=== PATIENT | female | born 1955 | race Caucasian/White ===

== ENCOUNTER 2021-06-25 15:29 | Observation (INO) | payer MEDICAID ==
[2021-06-25] MEDS ORDERED: ONDANSETRON 4 MG/2 ML VIAL IVP STA (17:03)
[2021-06-25] MEDS ORDERED: SODIUM CHLORIDE 0.9% 1,000 ML IV STA (17:03)
[2021-06-25 17:37] LABS: Anisocytosis Slight; Basophils % (A) 0 %; Eosinophils % (A) 1 %; HGB 10.9 gm/dL (11.4-16.0); Hyperchromasia Slight; Lymphocytes # (A) 0.3 k/uL (1.0-4.8); Lymphocytes % (A) 10 %; MCH 31.5 pg (25.0-35.0); MCHC 35.3 g/dL (31.0-37.0); MCV 89.5 fL (80.0-100.0); Mean Platelet Volume 7.1; Monocytes # (A) 0.2 k/uL (0-1.0); Monocytes % (A) 5 %; Neutrophils # (A) 2.8 k/uL (1.3-7.7); Neutrophils % (A) 82 %; Platelet Count 312 k/uL (150-450); Poikilocytosis Slight; RBC 3.46 m/uL (3.80-5.40); RDW 17.3 % (11.5-15.5); WBC 3.4 k/uL (3.8-10.6)
[2021-06-25 17:46] LABS: Appearance,Urine Clear (Clear); Bilirubin,Urine Negative (Negative); Blood,Urine Negative (Negative); Color,Urine Light Yellow; Glucose,Urine (UA) Negative (Negative); Ketones,Urine Negative (Negative); Leukocyte Esterase,Urine Negative (Negative); Nitrite,Urine Negative (Negative); PH, Urine 6.5 (5.0-8.0); Protein,Urine Negative (Negative); Specific Gravity,Urine 1.012 (1.001-1.035); Urobilinogen,Urine <2.0 mg/dL (<2.0)
[2021-06-25 17:53] LABS: ALT 46 U/L (4-34); AST 40 U/L (14-36); African American GFR (CKD) >90 (>60 ml/min/1.73 sqM); Albumin 3.8 g/dL (3.5-5.0); Alkaline Phosphatase 103 U/L (38-126); Anion Gap 7 mmol/L; Blood Urea Nitrogen 10 mg/dL (7-17); Calcium 9.2 mg/dL (8.4-10.2); Carbon Dioxide 23 mmol/L (22-30); Chloride 105 mmol/L (98-107); Glucose 116 mg/dL (74-99); Lipase 58 U/L (23-300); Magnesium 1.6 mg/dL (1.6-2.3); Non-African American GFR(CKD) >90 (>60 ml/min/1.73 sqM); Potassium 3.7 mmol/L (3.5-5.1); Sodium 135 mmol/L (137-145); Total Bilirubin 0.6 mg/dL (0.2-1.3); Total Protein 6.4 g/dL (6.3-8.2)
[2021-06-25] MEDS ORDERED: MAGNESIUM SULFATE-D5W PMX 1 GM in DEXTROSE/WATER 1 100ML.BAG IVPB ONE (18:59)
[2021-06-25] MEDS ORDERED: MECLIZINE 12.5 MG TAB PO STA (19:11)
[2021-06-25] MEDS ORDERED: diphenhydrAMINE 50 MG/ML 1 ML VIAL IVP STA (19:12)
[2021-06-25] MEDS ORDERED: SODIUM CHLORIDE 0.9% 1,000 ML IV ONE (19:12)
[2021-06-25] MEDS ORDERED: METOCLOPRAMIDE 5 MG/ML 2 ML VIAL IVP STA (19:12)
--- NOTE | 2021-06-25 20:07 | ED ---
Nausea/Vomiting/Diarrhea HPI - General Chief complaint: Nausea/Vomiting/Diarrhea Stated complaint: Dehydration Source: patient, family Mode of arrival: wheelchair Limitations: no limitations - History of Present Illness Initial comments: 66-year-old female with past medical history of breast cancer on chemotherapy presents emergency Department with reported nausea, vomiting and diarrhea. Patient states that she has had chronic diarrhea for nausea and vomiting is new for her. She just received her 2nd round of 12 planned chemo infusions on . States that she felt well up until noon today when she had sudden onset of nausea and vomiting. She called Ashli Sorto who recommended that she come into the emergency department for fluids. Patient admits to mild left lower quadrant abdominal pain. No headaches, fevers, weakness, chest pain or shortness of breath. No other alleviating, precipitating or modifying factors - Related Data Home Medications Medication Instructions Recorded Confirmed Cholecalciferol [Vitamin D3 (25 25 mcg PO DAILY 06/25/21 06/25/21 Mcg = 1000 Iu)] Cholestyramine (with Sugar) 4 gm PO DAILY PRN 06/25/21 06/25/21 [Cholestyramine Packet] Dexamethasone [Decadron] See Taper PO DIRECTED PRN 06/25/21 06/25/21 Dicyclomine [Bentyl] 10 mg PO TID PRN 06/25/21 06/25/21 Folic Acid 1 mg PO DAILY 06/25/21 06/25/21 Lidocaine-Prilocaine Cream [Emla 1 applic TOPICAL DIRECTED PRN 06/25/21 06/25/21 Cream 2.5%/2.5%] Loratadine [Claritin] 10 mg PO DAILY PRN 06/25/21 06/25/21 OLANZapine [ZyPREXA] 5 mg PO DAILY PRN 06/25/21 06/25/21 Omeprazole 40 mg PO DAILY 06/25/21 06/25/21 ondansetron HCL [Zofran] 8 mg PO QID PRN 06/25/21 06/25/21 Allergies Allergy/AdvReac Type Severity Reaction Status Date / Time aspirin Allergy Dyspnea Verified 06/25/21 20:29 Review of Systems ROS Statement: Those systems with pertinent positive or pertinent negative responses have been documented in the HPI. ROS Other: All systems not noted in ROS Statement are negative. Past Medical History Additional Past Medical History / Comment(s): Breast CA History of Any Multi-Drug Resistant Organisms: None Reported Past Surgical History: Cholecystectomy, Joint Replacement, Orthopedic Surgery, Tonsillectomy Past Psychological History: No Psychological Hx Reported Smoking Status: Never smoker Past Alcohol Use History: None Reported Past Drug Use History: None Reported General Exam Limitations: no limitations Course Vital Signs 06/25/21 16:51 Temperature 97.7 F Pulse Rate 94 Respiratory 20 Rate Blood Pressure 144/98 O2 Sat by Pulse 96 Oximetry - Reevaluation(s) Reevaluation #1: Patient reevaluated. Nausea is improved however patient has now developed tobias dden onset of vertiginous symptoms. Meclizine, Reglan and Benadryl ordered 06/25/21 1700 Reevaluation #2: Patient reevaluated. Still having significant vertigo. 5 mg of Valium was ordered. Did speak with the patient to has been in contact with Ashli Sorto. She is requesting CT the patient's abdomen because of her persistent diarrhea. Patient will go over for a CT of her brain as well as her abdomen at this time. 06/25/21 20:49 Medical Decision Making - Medical Decision Making Upon arrival the patient is placed in room 26. There was significant physical exam is performed. IV is established the patient is given 4 mg of Zofran and 1 L of normal saline. Laboratory studies are conducted and reviewed. Patient is a white blood cell count 3.4. AST and ALTs mildly elevated. The patient was reevaluated and has developed sudden onset of vertiginous symptoms. She has any improvement in her nausea. She is given Reglan, Benadryl and a dose of meclizine. Patient is reevaluated and continues to have significant vertigo. At this point he did recommend a CT of the patient's brain. has been speaking with she appears in who is requesting CT of the abdomen and pelvis due to elevated liver enzymes and vomiting. Patient's requesting the CT be done without contrast. CT is performed which demonstrates no acute intracranial process. CT of the abdomen demonstrates no acute intra-abdominal process. Patient is reevaluated and continues to report to vertiginous symptoms and therefore is given 5 mg of Valium. I commended admission for persistent symptoms which he did agree to. Spoke with Dr. Garcia who agreed to admit the patient. Dr. Martines placed on consult. - Lab Data Result diagrams: 06/25/21 17:32 06/25/21 17:32 Lab Results 06/25/21 06/25/21 06/25/21 Range/Units 17:32 17:32 17:32 WBC 3.4 L (3.8-10.6) k/uL RBC 3.46 L (3.80-5.40) m/uL Hgb 10.9 L (11.4-16.0) gm/dL Hct 31.0 L (34.0-46.0) % MCV 89.5 (80.0-100.0) fL MCH 31.5 (25.0-35.0) pg MCHC 35.3 (31.0-37.0) g/dL RDW 17.3 H (11.5-15.5) % Plt Count 312 (150-450) k/uL MPV 7.1 Neutrophils % 82 % Lymphocytes % 10 % Monocytes % 5 % Eosinophils % 1 % Basophils % 0 % Neutrophils # 2.8 (1.3-7.7) k/uL Lymphocytes # 0.3 L (1.0-4.8) k/uL Monocytes # 0.2 (0-1.0) k/uL Eosinophils # 0.0 (0-0.7) k/uL Basophils # 0.0 (0-0.2) k/uL Hyperchromasia Slight Poikilocytosis Slight Anisocytosis Slight Sodium 135 L (137-145) mmol/L Potassium 3.7 (3.5-5.1) mmol/L Chloride 105 (98-107) mmol/L Carbon Dioxide 23 (22-30) mmol/L Anion Gap 7 mmol/L BUN 10 (7-17) mg/dL Creatinine 0.49 L (0.52-1.04) mg/dL Est GFR (CKD-EPI)AfAm >90 (>60 ml/min/1.73 sqM) Est GFR (CKD-EPI)NonAf >90 (>60 ml/min/1.73 sqM) Glucose 116 H (74-99) mg/dL Calcium 9.2 (8.4-10.2) mg/dL Magnesium 1.6 (1.6-2.3) mg/dL Total Bilirubin 0.6 (0.2-1.3) mg/dL AST 40 H (14-36) U/L ALT 46 H (4-34) U/L Alkaline Phosphatase 103 (38-126) U/L Total Protein 6.4 (6.3-8.2) g/dL Albumin 3.8 (3.5-5.0) g/dL Lipase 58 (23-300) U/L Urine Color Light Yellow Urine Appearance Clear (Clear) Urine pH 6.5 (5.0-8.0) Ur Specific [place] 1.012 (1.001-1.035) Urine Protein Negative (Negative) Urine Glucose (UA) Negative (Negative) Urine Ketones Negative (Negative) Urine Blood Negative (Negative) Urine Nitrite Negative (Negative) Urine Bilirubin Negative (Negative) Urine Urobilinogen <2.0 (<2.0) mg/dL Ur Leukocyte Esterase Negative (Negative) - EKG Data EKG Comments: EKG demonstrates sinus rhythm with ventricular rate of 86. NV Interval 194. QRS 88. QTC 464. No acute ST segment elevations or depressions concerning for ischemic changes Disposition Clinical Impression: Weakness, Chemotherapy induced nausea and vomiting, Neutropenia Disposition: [facility] Condition: Stable Is patient prescribed a controlled substance at d/c from ED?: No Decision to Admit Reason: Admit from EC Decision Date: 06/25/21 Decision Time: 20:08
[2021-06-25] MEDS ORDERED: ACETAMINOPHEN TAB 325 MG TAB PO PRN (20:20)
[2021-06-25] MEDS ORDERED: ONDANSETRON 4 MG/2 ML VIAL IVP PRN (20:20)
[2021-06-25] MEDS ORDERED: NALOXONE 0.4 MG/ML 1 ML VIAL IV PRN (20:20)
[2021-06-25] MEDS ORDERED: DIAZEPAM 5 MG/ML 2 ML INJ IVP STA (20:46)
--- NOTE | 2021-06-25 21:26 | CT ---
EXAMINATION TYPE: CT brain wo con DATE OF EXAM: 06/25/2021 COMPARISON: None available HISTORY: Vertigo, breast cancer history. CT DLP: 1086.4 mGycm. Automated Exposure Control for Dose Reduction was Utilized. TECHNIQUE: Multiple contiguous axial CT images of the head were performed from the skull base through the vertex without the administration of intravenous contrast. 2-D sagittal and coronal reformats we re obtained. FINDINGS: No acute intracranial hemorrhage, mass effect, or midline shift. The ventricles and sulci are within normal limits in size. Hernández-white differentiation is preserved. No CT evidence of acute l arge vessel territorial ischemia. Calvarium appears intact. The globes are intact and the visualized sinuses are clear. IMPRESSION: No acute intracranial process.
--- NOTE | 2021-06-25 21:32 | CT ---
EXAMINATION TYPE: CT abdomen pelvis wo con DATE OF EXAM: 06/25/2021 COMPARISON: None available HISTORY: Diarrhea, elevated liver enzymes. CT DLP: 827.9 mGycm. Automated Exposure Control for Dose Reduction was Utilized. TECHNIQUE: Multiple contiguous axial CT images of the performed from the lung bases through the pubic symphysis without the administration of intravenous contrast. 2-D sagittal and coronal reformatted i mages were obtained. FINDINGS: Lung bases are clear. Liver, spleen, pancreas, and bilateral adrenal glands have an unremarkable unenhanced appearance. Gallbladder is absent. No definite intrahepatic or extrahepatic biliary ductal dilatation. Kidneys are symmetric in size without hydronephrosis. No renal or ureteral calculi. Urinary bladder a ppears unremarkable. Uterus is present. No adnexal masses. No free fluid. Small hiatal hernia. Visualized bowel is of normal caliber without evidence of obstruction. No signif icant mesenteric inflammation. Moderate distal colonic diverticulosis without adjacent inflammatory c hanges. Appendix appears unremarkable. No free air. Mild atherosclerotic calcifications of the abdominal aorta without aneurysm. No intra-abdominal or re troperitoneal lymphadenopathy. Subcutaneous soft tissues appear unremarkable. Moderate multilevel degenerative changes of the visualized thoracolumbar spine with grade 1 anterolis thesis of L4 on L5 secondary to facet arthropathy. IMPRESSION: 1. No definite acute intra-abdominal process. 2. Distal colonic diverticulosis without definite diverticulitis.
[2021-06-25] MEDS: SODIUM CHLORIDE 0.9% 1,000 ML IV SCH (22:20)
[2021-06-26] MEDS ORDERED: LORATADINE 10 MG TAB PO PRN (00:27)
[2021-06-26] MEDS ORDERED: OLANZapine 5 MG TAB PO PRN (00:27)
[2021-06-26] MEDS ORDERED: CHOLESTYRAMINE (WITH SUGAR) 4 GM PACKET PO PRN (00:27)
[2021-06-26] MEDS ORDERED: DICYCLOMINE 10 MG CAP PO PRN (00:27)
[2021-06-26] MEDS: MECLIZINE 25 MG TAB PO PRN ×2 (06:19→15:54)
[2021-06-26] MEDS: FOLIC ACID 1 MG TAB PO SCH (08:31)
[2021-06-26] MEDS: PANTOPRAZOLE 40 MG TABLET PO SCH (08:31)
[2021-06-26] MEDS: CHOLECALCIFEROL 25 MCG (1000 IU) TABLET PO SCH (08:31)
[2021-06-26 09:43] LABS: Basophils # (A) 0.02 X 10*3/uL (0.00-0.10); Basophils % (A) 0.8 %; Eosinophils # (A) 0.01 X 10*3/uL (0.04-0.35); Eosinophils % (A) 0.4 %; HCT 28.9 % (37.2-46.3); HGB 9.6 g/dL (12.0-15.0); Lymphocytes # (A) 0.51 X 10*3/uL (0.90-5.00); Lymphocytes % (A) 21.3 %; MCH 30.8 pg (27.0-32.0); MCHC 33.2 g/dL (32.0-37.0); MCV 92.6 fL (80.0-97.0); Mean Platelet Volume 10.2 fL (9.5-12.2); Monocytes # (A) 0.25 X 10*3/uL (0.20-1.00); Monocytes % (A) 10.4 %; Neutrophils % (A) 66.7 %; Platelet Count 304 X 10*3/uL (140-440); RBC 3.12 X 10*6/uL (4.10-5.20)
[2021-06-26 12:45] LABS: African American GFR (CKD) 109.7 (60.0-200.0); Anion Gap 12.4 mmol/L (4.00-12.00); BUN/Creat Ratio 14.92 Ratio (12.00-20.00); Blood Urea Nitrogen 8.9 mg/dL (9.0-27.0); Calcium 8.6 mg/dL (8.7-10.3); Carbon Dioxide 21.3 mmol/L (21.6-31.8); Non-African American GFR(CKD) 94.7 (60.0-200.0); Potassium 3.8 mmol/L (3.5-5.5)
--- NOTE | 2021-06-26 13:21 | P.HPIM ---
History of Present Illness This is a pleasant 66 years old female with past medical history of breast cancer status post bilateral mastectomy and currently she is undergoing chemotherapy. She presents because of nausea vomiting. However patient states her main complaints she came to the hospital with was dizziness. She describes dizziness as the room is spinning especially when she lies down. She's been getting chemotherapy for the last 10 weeks, however over the last 2 weeks she started to continue chemotherapy, and the second dose was on , on the same day she started having vomiting and dizziness, sometimes waking her up from the middle of the night. Yesterday she vomited 3 times, she has also diarrhea one hour after each time she eats for the last 2 days. Her oncologist is Dr. Ortiz and she has also neurologist She denies smoking, alcohol or illicit drugs Hemodynamically she is stable and vitals are stable. Mild Bicytopenia with WBC of 3.4 and Hemoglobin 10.9 While Platelets Are Normal at 312. BMP Is Unremarkable, Liver Enzymes Slightly Elevated with AST 48 ALT 46. Lipase Normal and Urine Analysis Is Negative. Coronavirus Is Not Detected CT of the brain: No acute process: CT of the abdomen and pelvis without contrast showing no definite acute intra- abdominal process. Distal colonic diverticulosis without diverticulitis. EKG showing normal sinus rhythm at [address]-T changes. Emergency room patient received several medication to control her vomiting including volume, Benadryl, magnesium sulfate, meclizine, Zofran and she was started on normal saline Review of Systems CONSTITUTIONAL: No fever, no malaise, no fatigue. HEENT: No recent visual problems or hearing problems. Denied any sore throat. CARDIOVASCULAR: No orthopnea, PND, no palpitations, no syncope. PULMONARY: No shortness of breath, no cough, no hemoptysis. GASTROINTESTINAL: No diarrhea, no nausea, no vomiting, no abdominal pain. Normoactive bowel sounds. NEUROLOGICAL: No headaches, no weakness, no numbness. HEMATOLOGICAL: Denies any bleeding or petechiae. GENITOURINARY: Denies any burning micturition, frequency, or urgency. MUSCULOSKELETAL/RHEUMATOLOGICAL: Denies any joint pain, swelling, or any muscle pain. ENDOCRINE: Denies any polyuria or polydipsia. Past Medical History Past Medical History: Cancer Additional Past Medical History / Comment(s): Breast CA History of Any Multi-Drug Resistant Organisms: None Reported Past Surgical History: Cholecystectomy, Joint Replacement, Orthopedic Surgery, Tonsillectomy Additional Past Surgical History / Comment(s): Bilateral knee replacements, left shoulder replacement. Bilateral mastectomy. Spurs removed from right foot. Past Anesthesia/Blood Transfusion Reactions: No Reported Reaction Past Psychological History: No Psychological Hx Reported Smoking Status: Never smoker Past Alcohol Use History: None Reported Past Drug Use History: None Reported Medications and Allergies Home Medications Medication Instructions Recorded Confirmed Type Cholecalciferol [Vitamin D3 (25 25 mcg PO DAILY 06/25/21 06/25/21 History Mcg = 1000 Iu)] Cholestyramine (with Sugar) 4 gm PO DAILY PRN 06/25/21 06/25/21 History [Cholestyramine Packet] Dexamethasone [Decadron] See Taper PO DIRECTED PRN 06/25/21 06/25/21 History Dicyclomine [Bentyl] 10 mg PO TID PRN 06/25/21 06/25/21 History Folic Acid 1 mg PO DAILY 06/25/21 06/25/21 History Lidocaine-Prilocaine Cream [Emla 1 applic TOPICAL DIRECTED PRN 06/25/21 History Cream 2.5%/2.5%] Loratadine [Claritin] 10 mg PO DAILY PRN 06/25/21 06/25/21 History OLANZapine [ZyPREXA] 5 mg PO DAILY PRN 06/25/21 06/25/21 History Omeprazole 40 mg PO DAILY 06/25/21 06/25/21 History ondansetron HCL [Zofran] 8 mg PO QID PRN 06/25/21 06/25/21 History Allergies Allergy/AdvReac Type Severity Reaction Status Date / Time aspirin Allergy Dyspnea Verified 06/25/21 20:29 Physical Exam Vitals: Vital Signs Temp Pulse Pulse Resp BP BP Pulse Ox 06/25/21 21:56 89 16 06/25/21 21:42 97.6 F 89 16 136/86 98 06/25/21 16:51 97.7 F 94 20 144/98 96 Intake and Output 06/25/21 06/25/21 06/26/21 14:59 22:59 06:59 Other: Voiding Method Toilet # Voids 1 Weight 88.451 kg -GENERAL: The patient is alert and oriented x3, not in any acute distress. Well developed, well nourished. Pale -HEENT: Pupils are round and equally reacting to light. EOMI. No scleral icterus. No conjunctival pallor. Normocephalic, atraumatic. No pharyngeal erythema. No thyromegaly. alopecia CARDIOVASCULAR: S1 and S2 present. No murmurs, rubs, or gallops. PULMONARY: Chest is clear to auscultation, no wheezing or crackles. ABDOMEN: Soft, nontender, nondistended, normoactive bowel sounds. No palpable organomegaly. MUSCULOSKELETAL: No joint swelling or deformity. EXTREMITIES: No cyanosis, clubbing, or pedal edema. NEUROLOGICAL: Gross neurological examination did not reveal any focal deficits. SKIN: No rashes. No petechiae Results CBC & Chem 7: 06/26/21 06:54 06/26/21 06:54 Labs: Abnormal Lab Results - Last 24 Hours (Table) 06/25/21 06/25/21 Range/Units 17:32 17:32 WBC 3.4 L (3.8-10.6) k/uL RBC 3.46 L (3.80-5.40) m/uL Hgb 10.9 L (11.4-16.0) gm/dL Hct 31.0 L (34.0-46.0) % RDW 17.3 H (11.5-15.5) % Lymphocytes # 0.3 L (1.0-4.8) k/uL Sodium 135 L (137-145) mmol/L Creatinine 0.49 L (0.52-1.04) mg/dL Glucose 116 H (74-99) mg/dL AST 40 H (14-36) U/L ALT 46 H (4-34) U/L Thrombosis Risk Factor Assmnt - Choose All That Apply Each Factor Represents 1 point: Obesity (BMI >25) Each Risk Factor Represents 2 Points: Age 61-74 years Thrombosis Risk Factor Assessment Total Risk Factor Score: 3 Thrombosis Risk Factor Assessment Level: Moderate Risk Assessment and Plan Assessment: Dizziness, suspicious for acute vertigo Intractable nausea vomiting, with chemotherapy Diarrhea after eating. Rule out C. difficile Breast cancer undergoing chemotherapy. Dehydration secondary to above status post bilateral mastectomy Alopecia, chemotherapy-induced Plan: This is a pleasant 66 years old female who presents with intractable nausea vomiting secondary to undergoing chemotherapy for breast cancer. Continue with normal saline anti emetics: Zofran, may consider Reglan, Phenergan and Tigan. Check orthostatic vitals Check C. diff Neurology consult There is no chest x-ray in the system so we will order one Labs and medication were reviewed.. Continue same treatment. Continue with symptomatic treatment. Resume home medication. Monitor lytes and vitals. DVT and GI prophylaxis. Further recommendations depends on the clinical course of the patient DVT prophylaxis: Subcutaneous heparin GI Prophylaxis: pi Prognosis is guarded
--- NOTE | 2021-06-26 15:21 | XR ---
EXAMINATION TYPE: XR chest 2V DATE OF EXAM: 06/26/2021 COMPARISON: NONE HISTORY: Breast cancer. TECHNIQUE: 2 view FINDINGS: Heart is normal. Lungs are clear of infiltrate. There is left shoulder prosthesis. There is right central venous catheter with tip in the superior vena cava. There is no pleural effusion. Bony thorax appears intact. IMPRESSION: No active cardiopulmonary disease. Normal heart.
[2021-06-26] MEDS: SODIUM CHLORIDE 0.9% 1,000 ML IV SCH (19:01)
--- NOTE | 2021-06-26 19:42 | US ---
EXAMINATION TYPE: US carotid duplex BILAT DATE OF EXAM: 06/26/2021 COMPARISON: NONE CLINICAL HISTORY: vertigo. Exam done portable EXAM MEASUREMENTS: RIGHT: Peak Systolic Velocity (PSV) cm/sec ----- Right CCA: 95.5 ----- Right ICA: 80.3 ----- Right ECA: 82.4 ICA/CCA ratio: 0.8 RIGHT: End Diastole cm/sec ----- Right CCA: 27.3 ----- Right ICA: 26.3 ----- Right ECA: 8.6 LEFT: Peak Systolic Velocity (PSV) cm/sec ----- Left CCA: 72.7 ----- Left ICA: 87.4 ----- Left ECA: 69.2 ICA/CCA ratio: 1.2 LEFT: End Diastole cm/sec ----- Left CCA: 18.5 ----- Left ICA: 33.2 ----- Left ECA: 11.2 VERTEBRALS (direction of flow): Right Vertebral: Antegrade Left Vertebral: Antegrade Rhythm: Normal No significant stenosis IMPRESSION: The images and measurements suggest less than 10% stenosis in both internal carotid arteries. There i s antegrade flow in the vertebral arteries. Criteria for Assigning % of Stenosis / Diameter reduction (Estimation based on the indirect measurements of the internal carotid artery velocities (ICA PSV). 1. Normal (no stenosis)=ICA PSV < 125 cm/s: ratio < 2.0: ICA EDV<40 cm/s. 2. Less than 50% stenosis=ICA PSV < 125 cm/s: ratio < 2.0: ICA EDV<40 cm/s. 3. 50 to 69% stenosis=ICA PSV of 125 to 230 cm/s: ration 2.0 ? 4.0: ICA EDV 40-100 cm/s. 4. Greater than 70% stenosis to near occlusion= ICA PSV > 230 cm/s: ratio > 4.0: ICA EDV > 100 cm/s. 5. Near occlusion= ICA PSV velocities may be low or undetectable: variable ratio and ICA EDV. 6. Total occlusion=unable to detect flow.
--- NOTE | 2021-06-26 21:46 | P.CONS ---
History of Present Illness - Reason for Consult Consult date: 06/26/21 Diarrhea,dehydration, N/v, chemo for breast ca - History of Present Illness Ms Quach is a pleasant white female with overall well-controlled medical problems. The patient had noticed a hard mass in the inner upper quadrant of the left breast initially in 01/21. She brought this to the attention of her PCP, and had mammogram on 01/27/21. This showed a masslike density measuring 1.4 x 1.3 cm located about 10 cm from the nipple. Ultrasound on the same day confirmed a 1.7 x 1.1 x 1.5 cm lesion at the 9 o'clock position. The patient underwent an ultrasound-guided core biopsy on 02/03/21. This showed invasive ductal carcinoma, grade 3, ER weakly positive at 35%, AK negative, and HER-2/prince 2+. Apparently FISH testing was negative. The patient elected to have surgery at the [facility]. Imaging at the [facility] showed the breast mass measuring 2.7 cm with addition suspicious tissue spanning 5.1 cm. The patient elected bilateral mastectomies and had those performed on 03/09/21. Final pathology showed a 3.2 cm, grade 3, invasive ductal carcinoma on the left ER 35%, AK negative, and a minor subclone HER 2 positive with 3+ IHC. Patient had sentinel node biopsy on the left revealing 1/3 nodes involved with micrometastatic disease 0.19 cm. The right breast was benign. The patient tolerated surgery well. She was seen by oncology at the [facility], Dr. Snow, and was felt to be appropriate candidate for adjuvant systemic therapy. As the HER-2 positive clone was minor, she was recommended to have dose dense Adriamycin and Cytoxan followed by weekly Taxol with Herceptin and Perjeta, with the immunotherapy to continue every 3 weeks after completion of chemotherapy to complete one full year of treatment. The patient wanted to have her treatment closer to home due to which she was referred here. She denied any prior history of malignancy. Her mammogram before this one was in 2019. In 2016 she had had a benign biopsy on the right breast. There is no family history of breast or ovarian cancer. She tolerated surgery well without any significant postoperative issues. She has decided against any reconstruction. The patient has a history of hypertension and only which are fairly minor. She does have a history of allergies to multiple substances. She states that s he has several symptoms that are apparently suspicious for autoimmune disease such as SLE, including skin rashes, or in onwards, photosensitivity, myalgias and fatigue. She did have a rheumatology workup which was however negative for any serological markers. The patient therefore has not had any specific treatment and no rheumatology follow-up since at least 2014. the patient's PET scan showed uptake in a 0.6 cm internal mammary node. However given the location this was not felt to change treatment or intent of treatment. the patient started dose dense before meals on 04/22/21, and completed that on 06/03/21. She then started weekly Taxol with herceptin/Perjeta on 06/16/21 The patient is status post 2/12 weekly cycles, with the most recent one given on 06/23/21. The patient has had some upper abdominal discomfort described as burning, as well as some nausea off and on. Nausea has been responsive to antibiotics. However after her last chemotherapy the patient states that she had having multiple episodes of loose bowel movements. Over the last 2 or 3 days she has been quite dizzy. She states that she developed overt vomiting when she was trying to rehydrate herself. This caused progression of weakness, causing her to come to the ER. The chest x-ray, CT brain and CT of the abdomen and pelvis did not show any specific pathology. CT scans were done without contrast. On questioning the patient definitely feels that her main problem has been diarrhea rather than nausea and vomiting. She is also complaining of some abdominal tenderness which appears to be localized to the left lower quadrant. This has been continuing in the hospital. Consult was placed for further evaluation and recommendation Review of Systems Constitutional: Reports fatigue, Reports poor appetite, Reports weakness, Reports weight loss Eyes: denies blurred vision, denies pain Ears: deny: decreased hearing, ear discharge, earache, tinnitus Ears, nose, mouth and throat: Denies headache, Denies sore throat Cardiovascular: Reports decreased exercise tolerance Respiratory: Denies cough Gastrointestinal: Reports abdominal pain, Reports diarrhea, Reports nausea, Reports vomiting Genitourinary: Denies dysuria, Denies hematuria Menstruation: Reports postmenopausal Musculoskeletal: Reports muscle weakness Integumentary: Denies pruritus, Denies rash Neurological: Reports weakness Psychiatric: Denies anxiety, Denies depression Endocrine: Reports fatigue Hematologic/Lymphatic: Reports as per HPI Past Medical History Past Medical History: Cancer Additional Past Medical History / Comment(s): Breast CA History of Any Multi-Drug Resistant Organisms: None Reported Past Surgical History: Cholecystectomy, Joint Replacement, Orthopedic Surgery, Tonsillectomy Additional Past Surgical History / Comment(s): Bilateral knee replacements, left shoulder replacement. Bilateral mastectomy. Spurs removed from right foot. Past Anesthesia/Blood Transfusion Reactions: No Reported Reaction Past Psychological History: No Psychological Hx Reported Smoking Status: Never smoker Past Alcohol Use History: None Reported Past Drug Use History: None Reported Medications and Allergies Home Medications Medication Instructions Recorded Confirmed Type Cholecalciferol [Vitamin D3 (25 25 mcg PO DAILY 06/25/21 06/25/21 History Mcg = 1000 Iu)] Cholestyramine (with Sugar) 4 gm PO DAILY PRN 06/25/21 06/25/21 History [Cholestyramine Packet] Dexamethasone [Decadron] See Taper PO DIRECTED PRN 06/25/21 06/25/21 History Dicyclomine [Bentyl] 10 mg PO TID PRN 06/25/21 06/25/21 History Folic Acid 1 mg PO DAILY 06/25/21 06/25/21 History Lidocaine-Prilocaine Cream [Emla 1 applic TOPICAL DIRECTED PRN 06/25/21 06/25/21 History Cream 2.5%/2.5%] Loratadine [Claritin] 10 mg PO DAILY PRN 06/25/21 06/25/21 History OLANZapine [ZyPREXA] 5 mg PO DAILY PRN 06/25/21 06/25/21 History Omeprazole 40 mg PO DAILY 06/25/21 06/25/21 History ondansetron HCL [Zofran] 8 mg PO QID PRN 06/25/21 06/25/21 History Allergies Allergy/AdvReac Type Severity Reaction Status Date / Time aspirin Allergy Dyspnea Verified 06/25/21 20:29 Physical Exam Vitals: Vital Signs Temp Pulse Pulse Resp BP BP Pulse Ox 06/26/21 07:00 98.4 F 94 17 143/84 98 06/26/21 02:14 98.0 F 80 18 115/75 97 06/25/21 21:56 89 16 06/25/21 21:42 97.6 F 89 16 136/86 98 06/25/21 16:51 97.7 F 94 20 144/98 96 Intake and Output 06/25/21 06/26/21 06/26/21 22:59 06:59 14:59 Output Total 1 Balance -1 Output: Urine/Stool Mix 1 Other: Voiding Method Toilet # Voids 1 Weight 88.451 kg - Constitutional General appearance: no acute distress - EENT Eyes: EOMI, PERRLA ENT: hearing grossly normal, normal oropharynx - Neck Neck: no lymphadenopathy Thyroid: bilateral: normal size - Respiratory Respiratory: bilateral: CTA - Cardiovascular Rhythm: regular Heart sounds: normal: S1, S2 - Gastrointestinal General gastrointestinal: hyperactive bowel sounds, soft Localized gastrointestinal: tender: LLQ - Integumentary Integumentary: normal - Neurologic Neurologic: CNII-XII intact - Musculoskeletal Musculoskeletal: generalized weakness, strength equal bilaterally - Psychiatric Psychiatric: A&O x's 3, appropriate affect Results CBC & Chem 7: 06/26/21 06:54 06/26/21 06:54 Labs: Abnormal Lab Results - Last 24 Hours (Table) 06/25/21 06/25/21 06/26/21 Range/Units 17:32 17:32 06:54 WBC 3.4 L 2.40 L (3.8-10.6) k/uL RBC 3.46 L 3.12 L (3.80-5.40) m/uL Hgb 10.9 L 9.6 L (11.4-16.0) gm/dL Hct 31.0 L 28.9 L (34.0-46.0) % RDW 17.3 H 17.0 H (11.5-15.5) % Neutrophils # 1.60 L (1.80-7.70) X 10*3/uL Lymphocytes # 0.3 L 0.51 L (1.0-4.8) k/uL Eosinophils # 0.01 L (0.04-0.35) X 10*3/uL Sodium 135 L (137-145) mmol/L Creatinine 0.49 L (0.52-1.04) mg/dL Glucose 116 H (74-99) mg/dL AST 40 H (14-36) U/L ALT 46 H (4-34) U/L Chest x-ray: report reviewed CT scan - abdomen: report reviewed CT Scan - head: report reviewed CT scan - pelvis: report reviewed Assessment and Plan (1) Diarrhea with dehydration Narrative/Plan: While nausea and vomiting was the precipitating event bring the patient to the ER, her problem actually appears to be mostly diarrhea that started after her last chemotherapy and has been persistent, with multiple bowel movements which have been mostly watery throughout the day. Diarrhea appears to be brought on by eating, due to which oral intake has been reduced. The patient has therefore been getting weaker and dizzy, most likely due to dehydration. While she has had some nausea at baseline with chemotherapy, that has been well controlled with anti emetics previously. She believes that she started throwing up after trying to hydrate herself with electrolyte solutions more aggressively over the last 1-2 days. - The differential diagnosis includes chemotherapy related enterocolitis, versus infection versus diverticulitis (given the left lower quadrant location). Patient's CT of the abdomen and pelvis was unrevealing, but this was done without contrast. - Clear liquid diet - Stool studies for C. difficile stool culture. If negative she can be started on antidiarrheals - IV hydration. Once the patient's hydration status is better, and nausea is controlled, the plan would be to repeat a CT scan with contrast. If infection workup is negative, and CT scan show generalized enterocolitis, which would be highly suggestive of chemotherapy related adverse event, then she will need dose modification with treatment going forward. Current Visit: Yes Status: Acute Code(s): R19.7 - DIARRHEA, UNSPECIFIED SNOMED Code(s): 04015624 (2) Chemotherapy induced nausea and vomiting Narrative/Plan: The patient has had some nausea, and upper abdominal discomfort on and off since starting chemotherapy, which appears to be mostly chemotherapy related gastritis. More severe nausea and vomiting occurred over the last 1-2 days, w hen she was trying to aggressively hydrate herself with oral electrolytes while also been quite dizzy from dehydration. CT of the brain did not show any acute issues. - IV antiemetics - IV hydration Current Visit: Yes Status: Acute Code(s): R11.2 - NAUSEA WITH VOMITING, UNSPECIFIED; T45.1X5A - ADVERSE EFFECT OF ANTINEOPLASTIC AND IMMUNOSUP DRUGS, INIT SNOMED Code(s): 72711209 (3) Bicytopenia Narrative/Plan: Due to chemotherapy. Monitor counts. Consider G-CSF if ANC drops below 1000 especially if the patient develops any fever. Transfuse to keep hemoglobin greater than 10. Current Visit: Yes Status: Acute Code(s): D75.89 - OTHER SPECIFIED DISEASES OF BLOOD AND BLOOD-FORMING ORGANS SNOMED Code(s): 29043143
[2021-06-26] MEDS ORDERED: ONDANSETRON 4 MG/2 ML VIAL IVP PRN (21:48)
[2021-06-26 23:19] LABS: Folate, Serum 14.6 ng/mL (4.40-31.00)
[2021-06-27] MEDS: MECLIZINE 25 MG TAB PO PRN ×2 (00:04→08:49)
[2021-06-27] MEDS: CHOLESTYRAMINE (WITH SUGAR) 4 GM PACKET PO SCH ×4 (00:05→20:37)
[2021-06-27] MEDS: SODIUM CHLORIDE 0.9% 1,000 ML IV SCH ×2 (00:06→08:50)
--- NOTE | 2021-06-27 01:51 | P.CNNES ---
History of Present Illness Consult date: 06/26/21 Requesting physician: Tyler Garcia Reason for Consult: Vertigo History of Present Illness: This is a Tele-neurology consultation performed today on 06/26/2021. Patient is a 66-year-old female with history of stage II breast cancer diagnosed in February 2021, who underwent a double mastectomy in March and started with chem otherapy in early March 2021. The chemotherapy started as every other week which she received for first 8 weeks. After that, in the last 2 weeks she has been receiving a different type of chemotherapy which is immunotherapy, and she has received 1 dose of immunotherapy so far. Patient states that yesterday at 11 AM she was getting up and around making bed when she started noticing spinning sens ation like vertigo. It really head fast and then she started throwing up. She felt that she was dehydrated, took Gatorade, but then she threw it up. She came to the hospital yesterday at 3:29 PM. Her symptoms of vertigo has persisted. She is noticing some mild headache today above the right eye which radiates 2/10. Denies any recent or remote history of head or neck injury. She denies any pressure in the ear, ringing in the years, or pressure. If she moves head fast, she feels double vision [id number]. Denies any numbness or tingling. No slurred speech or facial droop. No paralysis. When she lays down, she feels her "bed is spinning. Denies any vision loss or blurred vision. She denies any history of vertigo ever in the past. Patient's vital signs on arrival blood pressure 144/98, pulse of 94, temperature 97.7. Patient's blood test shows WBC 3.4 hemoglobin 10.9, platelet 312. Sodium 135 potassium 3.7, normal renal function. AST is mildly elevated 40, ALT 46. UA negative. Negron virus PCR negative. CT head showed no acute process. EKG with normal sinus rhythm. CT of abdomen and pelvis revealed no definite acute intra-abdominal process. Distal colonic diverticulosis without definite diverticulitis. Chest x-ray shows no acute cardiopulmonary disease. Patient's home medications include vitamin D, Zofran, omeprazole, folic acid dexamethasone 4 mg. Patient was given Zyprexa 5 mg daily when necessary for nausea but she has not taken it for last 7 days. Patient denies diabetes or hypertension, never smoked. Review of Systems As mentioned above in HPI. All other review of systems reviewed and noncontributory. All 14 point of review systems are reviewed. Patient even at this time feels spinning sensation. Past Medical History Past Medical History: Cancer Additional Past Medical History / Comment(s): Breast CA History of Any Multi-Drug Resistant Organisms: None Reported Past Surgical History: Cholecystectomy, Joint Replacement, Orthopedic Surgery, Tonsillectomy Additional Past Surgical History / Comment(s): Bilateral knee replacements, left shoulder replacement. Bilateral mastectomy. Spurs removed from right foot. Past Anesthesia/Blood Transfusion Reactions: No Reported Reaction Past Psychological History: No Psychological Hx Reported Smoking Status: Never smoker Past Alcohol Use History: None Reported Past Drug Use History: None Reported Medications and Allergies Home Medications Medication Instructions Recorded Confirmed Type Cholecalciferol [Vitamin D3 (25 25 mcg PO DAILY 06/25/21 06/25/21 History Mcg = 1000 Iu)] Cholestyramine (with Sugar) 4 gm PO DAILY PRN 06/25/21 06/25/21 History [Cholestyramine Packet] Dexamethasone [Decadron] See Taper PO DIRECTED PRN 06/25/21 06/25/21 History Dicyclomine [Bentyl] 10 mg PO TID PRN 06/25/21 06/25/21 History Folic Acid 1 mg PO DAILY 06/25/21 06/25/21 History Lidocaine-Prilocaine Cream [Emla 1 applic TOPICAL DIRECTED PRN 06/25/21 06/25/21 History Cream 2.5%/2.5%] Loratadine [Claritin] 10 mg PO DAILY PRN 06/25/21 06/25/21 History OLANZapine [ZyPREXA] 5 mg PO DAILY PRN 06/25/21 06/25/21 History Omeprazole 40 mg PO DAILY 06/25/21 06/25/21 History ondansetron HCL [Zofran] 8 mg PO QID PRN 06/25/21 06/25/21 History Allergies Allergy/AdvReac Type Severity Reaction Status Date / Time aspirin Allergy Dyspnea Verified 06/25/21 20:29 Physical Examination - Vital Signs Vital Signs: Vital Signs Temp Pulse Pulse Resp BP BP Pulse Ox 06/26/21 15:00 98.6 F 89 17 122/80 98 06/26/21 14:00 17 06/26/21 08:00 94 17 06/26/21 07:00 98.4 F 94 17 143/84 98 06/26/21 02:14 98.0 F 80 18 115/75 97 06/25/21 21:56 89 16 06/25/21 21:42 97.6 F 89 16 136/86 98 06/25/21 16:51 97.7 F 94 20 144/98 96 Intake and Output 06/26/21 06/26/21 06/26/21 06:59 14:59 22:59 Output Total 1 Balance -1 Output: Urine/Stool Mix 1 Other: Voiding Method Toilet # Voids 1 Patient is an elderly female, very pleasant, appears to be in mild distress because of vertigo. Patient is alert awake oriented to time place and person. Speech and language functions are normal. Attention, concentration and fund of knowledge is adequate. No aphasia or dysarthria. On cranial examination, pupils are round and reacting to light, visual kanpp are full on confrontation, extraocular muscles are intact with no nystagmus. Face is symmetric, tongue protrudes to the midline. Palatal elevation and sensation normal, hearing and shoulder shrug normal, facial sensation normal. S houlder shrug normal. On muscle strength testing, there is no pronator drift and the strength is no rmal in arms and legs distally and proximally, except hip flexion which is slightly weak 4+ bilaterally. Deep tendon reflexes are 1 in the upper and lower limbs and plantars downgoing. Patient has artificial knees bilaterally. Sensory to touch is equal with no neglect. Cerebellar function showed no ataxia for [id number] or [id number] testing. No dysdiadochokinesia. Tone and bulk of muscles normal. Gait not checked. On general examination, there is no carotid bruit or murmur, S1-S2 audible. Abdomen is soft nontender. Chest is clear. Peripheral pulses are present. No edema. Results - Laboratory Findings CBC and BMP: 06/26/21 06:54 06/26/21 06:54 Abnormal Lab Findings: Abnormal Labs 06/25/21 06/25/21 06/26/21 17:32 17:32 06:54 WBC 3.4 L 2.40 L RBC 3.46 L 3.12 L Hgb 10.9 L 9.6 L Hct 31.0 L 28.9 L RDW 17.3 H 17.0 H Neutrophils # 1.60 L Lymphocytes # 0.3 L 0.51 L Eosinophils # 0.01 L Sodium 135 L Carbon Dioxide Anion Gap BUN Creatinine 0.49 L Glucose 116 H Calcium AST 40 H ALT 46 H 06/26/21 06:54 WBC RBC Hgb Hct RDW Neutrophils # Lymphocytes # Eosinophils # Sodium Carbon Dioxide 21.3 L Anion Gap 12.40 H BUN 8.9 L Creatinine Glucose Calcium 8.6 L AST ALT Assessment and Plan Assessment: * 66-year-old female, recent diagnosis of breast cancer, status post mastectomy, completed chemotherapy, but now receiving immunotherapy, has developed acute onset of vertigo since yesterday 11 AM. Differential diagnosis is between viral labyrinthitis versus side effect of immunotherapy, less likely cerebellar ischemia. Her examination is nonfocal. Plan: * Patient underwent a carotid Doppler, which revealed less than 10% stenosis in both ICA. Antegrade flow in the vertebral arteries. * B12 was checked was 1781, folate 14.6, TSH is normal 2.5. * We will check MRI of the brain with and without contrast rule out CVA or other structural abnormalities. * Continue meclizine 25 mg 3 times a day when necessary. * Dr. Ángel Cowart Will resume neurology service in the morning.
[2021-06-27] MEDS: FOLIC ACID 1 MG TAB PO SCH (08:49)
[2021-06-27] MEDS: PANTOPRAZOLE 40 MG TABLET PO SCH (08:50)
[2021-06-27] MEDS: CHOLECALCIFEROL 25 MCG (1000 IU) TABLET PO SCH (08:50)
--- NOTE | 2021-06-27 11:06 | ECHOF ---
Referral Reason:on chemotherapy, symptomatic MEASUREMENTS -------- HEIGHT: 170.2 cm WEIGHT: 88.5 kg BP: 118/76 RVIDd: 3.2 cm (< 3.3) IVSd: 1.4 cm (0.6 - 1.1) LVIDd: 4.3 cm (3.9 - 5.3) LVPWd: 1.3 cm (0.6 - 1.1) IVSs: 1.6 cm LVIDs: 3.1 cm LVPWs: 2.0 cm LA Diam: 3.4 cm (2.7 - 3.8) LAESV Index (A-L): 22.38 ml/m Ao Diam: 2.7 cm (2.0 - 3.7) AV Cusp: 1.9 cm (1.5 - 2.6) MV EXCURSION: 17.007 mm (> 18.000) MV EF SLOPE: 104 mm/s (70 - 150) EPSS: 0.3 cm MV E Jaya: 0.92 m/s MV DecT: 140 ms MV A Jaya: 1.16 m/s MV E/A Ratio: 0.80 RAP: 5.00 mmHg RVSP: 17.86 mmHg FINDINGS -------- Sinus rhythm. This was a technically adequate study. The left ventricular size is normal. There is mild concentric left ventricular hypertrophy. Overa ll left ventricular systolic function is normal with, an EF between 60 - 65 %. The right ventricle is normal in size. Normal LA size by volume 22+/-6 ml/m2. The right atrium is normal in size. Interatrial and interventricular septum intact. There is mild aortic valve sclerosis. Mild mitral annular calcification present. There is trace to mild mitral regurgitation. Mild tricuspid regurgitation present. Right ventricular systolic pressure is normal at < 35 mmHg. The pulmonic valve was not well visualized. The aortic root size is normal. Normal inferior vena cava with normal inspiratory collapse consistent with estimated right atrial pre ssure of 5 mmHg. There is no pericardial effusion. CONCLUSIONS -------- 1. The left ventricular size is normal. 2. There is mild concentric left ventricular hypertrophy. 3. Overall left ventricular systolic function is normal with, an EF between 60 - 65 %. 4. There is mild aortic valve sclerosis. 5. Mild mitral annular calcification present. 6. There is trace to mild mitral regurgitation. 7. Mild tricuspid regurgitation present. 8. There is no pericardial effusion. MEDICAID SPECIALIST: Zee Sanchez RDCS
--- NOTE | 2021-06-27 11:32 | P.PN ---
Subjective Progress Note Date: 06/27/21 I am seeing the patient for the first time for neurological management. Please refer to Dr. Belcher's note for further details. She states that she has dizziness mostly with position and she feels somewhat im proved the with resting but she said that she still has it but mostly it with position. She denies of any nausea, vomiting, any focal weakness, and he regained the ears or hearing loss. She denies of any difficulty getting her words out. Denies any history of stroke, and the alcohol use, tobacco use or any illicit drug use. Objective - Vital Signs Vital signs: Vital Signs Temp 97.7 F 06/27/21 07:00 Pulse 88 06/27/21 11:02 Resp 16 06/27/21 07:00 BP 137/85 06/27/21 11:02 Pulse Ox 96 06/27/21 07:00 Intake & Output 06/26/21 06/27/21 06/27/21 18:59 06:59 18:59 Other: Voiding Method Toilet Toilet # Voids 2 - Exam GENERAL: The patient is lying in bed and is not in acute distress. NEUROLOGICAL: Higher mental function: The patient is awake, alert, oriented to self, place and time. Patient is following commands. No aphasia and no neglect. Cranial nerves: The pupils are round, equal and reactive to light and accommodation. Visual knapp are full to confrontation throughout. Extraocular movement is intact no nystagmus is noted. Facial sensation is normal to touch throughout. The facial strength is normal throughout. Hearing is normal bilaterally to hand rub. Tongue is midline and moved [id number] without any difficulty. No dysarthria is noted. Shoulder shrug is normal bilaterally. Motor: The strength is 5 over 5 throughout. Normal tone and bulk. Cerebellum: Normal finger to nose bilaterally. Sensation: Sensation is normal to touch throughout. Plantars are downgoing bilaterally. WORK-UP: * CT head showed no acute process. * carotid Doppler, which revealed less than 10% stenosis in both ICA. Antegrade flow in the vertebral arteries. * B12 was checked was 1781, folate 14.6. * TSH is normal 2.5. - Labs CBC & Chem 7: 06/27/21 08:12 06/27/21 08:12 Labs: Abnormal Lab Results - Last 24 Hours (Table) 06/26/21 06/26/21 Range/Units 06:54 17:11 Carbon Dioxide 21.3 L (21.6-31.8) mmol/L Anion Gap 12.40 H (4.00-12.00) mmol/L BUN 8.9 L (9.0-27.0) mg/dL Calcium 8.6 L (8.7-10.3) mg/dL Vitamin B12 1781.0 H (200.0-944.0) pg/mL Microbiology - Last 24 Hours (Table) 06/26/21 14:15 Stool Culture - Preliminary Stool Assessment and Plan Assessment: * 66-year-old female, recent diagnosis of breast cancer, status post mastectomy, completed chemotherapy, but now receiving immunotherapy, has developed acute onset of vertigo since yesterday 11 AM. Differential diagnosis is between viral labyrinthitis versus side effect of immunotherapy, less likely cerebellar ischemia. Her examination is nonfocal. * History of breast cancer status post mastectomy bilaterally Plan: Pending MRI of the brain Continue meclizine 25 mg 1 tablet 3 times a day when necessary If MRI of the brain is negative, then patient is clear from neurology perspective. And I recommend the patient to follow-up with ENT and the consider vestibular rehab if she continues to have symptoms. We'll defer the rest of the medical management to the primary team. Ángel Cowart M.D. Neuro-hospitalist Time with Patient: Less than 30
[2021-06-27 11:48] LABS: African American GFR (CKD) 107.2 (60.0-200.0); Albumin 3.8 g/dL (3.8-4.9); Albumin/Globulin Ratio 2.07 (1.60-3.17); Anion Gap 9.8 mmol/L (4.00-12.00); BUN/Creat Ratio 11.49 Ratio (12.00-20.00); Blood Urea Nitrogen 7.3 mg/dL (9.0-27.0); Carbon Dioxide 23.5 mmol/L (21.6-31.8); Globulin 1.9 g/dL (1.6-3.3); Non-African American GFR(CKD) 92.5 (60.0-200.0); Potassium 3.9 mmol/L (3.5-5.5); Total Bilirubin 0.5 mg/dL (0.30-1.20); Total Protein 5.7 g/dL (6.2-8.2)
[2021-06-27 11:54] LABS: Basophils # (A) 0.04 X 10*3/uL (0.00-0.10); Basophils % (A) 1.8 %; Eosinophils # (A) 0.02 X 10*3/uL (0.04-0.35); Eosinophils % (A) 0.9 %; HCT 30.2 % (37.2-46.3); Lymphocytes % (A) 22.8 %; MCH 31.3 pg (27.0-32.0); MCHC 33.1 g/dL (32.0-37.0); MCV 94.7 fL (80.0-97.0); Mean Platelet Volume 10.2 fL (9.5-12.2); Monocytes # (A) 0.21 X 10*3/uL (0.20-1.00); Monocytes % (A) 9.6 %; Neutrophils # (A) 1.41 X 10*3/uL (1.80-7.70); Neutrophils % (A) 64.4 %; Platelet Count 291 X 10*3/uL (140-440); RBC 3.19 X 10*6/uL (4.10-5.20); RDW 17.3 % (11.5-14.5); WBC 2.19 X 10*3/uL (4.50-10.00)
--- NOTE | 2021-06-27 13:11 | P.PN ---
Subjective Progress Note Date: 06/27/21 Principal diagnosis: Diarrhea, Dehydration, Dizziness. She is feeling a little better, although still dizzy, and mild headache. Abdominal pain and diarrhea are improving however she has not been advanced on her diet to know if able to tolerate. She was unable to tolerate the PO CT contrast but now is able to. Objective - Vital Signs Vital signs: Vital Signs Temp 97.7 F 06/27/21 07:00 Pulse 84 06/27/21 07:00 Resp 16 06/27/21 07:00 BP 118/76 06/27/21 07:00 Pulse Ox 96 06/27/21 07:00 Intake & Output 06/26/21 06/27/21 06/27/21 18:59 06:59 18:59 Other: Voiding Method Toilet Toilet # Voids 2 - Constitutional General appearance: Present: cooperative, no acute distress - EENT Eyes: Present: edentulous, PERRLA ENT: Present: NA/AT - Respiratory Respiratory: bilateral: CTA - Cardiovascular Rhythm: regular Heart sounds: normal: S1, S2 - Gastrointestinal General gastrointestinal: Present: normal bowel sounds, tenderness - Integumentary Integumentary: Present: pale - Neurologic Neurologic: Present: CNII-XII intact - Musculoskeletal Musculoskeletal: Present: generalized weakness - Psychiatric Psychiatric: Present: A&O x's 3, appropriate affect, intact judgment & insight - Labs CBC & Chem 7: 06/27/21 08:12 06/27/21 08:12 Labs: Abnormal Lab Results - Last 24 Hours (Table) 06/26/21 06/26/21 06/26/21 Range/Units 06:54 06:54 17:11 WBC 2.40 L (4.50-10.00) X 10*3/uL RBC 3.12 L (4.10-5.20) X 10*6/uL Hgb 9.6 L (12.0-15.0) g/dL Hct 28.9 L (37.2-46.3) % RDW 17.0 H (11.5-14.5) % Neutrophils # 1.60 L (1.80-7.70) X 10*3/uL Lymphocytes # 0.51 L (0.90-5.00) X 10*3/uL Eosinophils # 0.01 L (0.04-0.35) X 10*3/uL Carbon Dioxide 21.3 L (21.6-31.8) mmol/L Anion Gap 12.40 H (4.00-12.00) mmol/L BUN 8.9 L (9.0-27.0) mg/dL Calcium 8.6 L (8.7-10.3) mg/dL Vitamin B12 1781.0 H (200.0-944.0) pg/mL Microbiology - Last 24 Hours (Table) 06/26/21 14:15 Stool Culture - Preliminary Stool Assessment and Plan (1) Dizzy spells Current Visit: Yes Status: Acute Code(s): R42 - DIZZINESS AND GIDDINESS SNOMED Code(s): 547114667 (2) Dizziness Current Visit: Yes Status: Acute Code(s): R42 - DIZZINESS AND GIDDINESS SNOMED Code(s): 032600787 (3) Vision changes Current Visit: Yes Status: Acute Code(s): H53.9 - UNSPECIFIED VISUAL DISTURBANCE SNOMED Code(s): 696707804 (4) Headache Current Visit: Yes Status: Acute Code(s): R51.9 - HEADACHE, UNSPECIFIED SNOMED Code(s): 91076364 (5) Chemotherapy induced nausea and vomiting Current Visit: Yes Status: Acute Code(s): R11.2 - NAUSEA WITH VOMITING, UNSPECIFIED; T45.1X5A - ADVERSE EFFECT OF ANTINEOPLASTIC AND IMMUNOSUP DRUGS, INIT SNOMED Code(s): 60205278 (6) Diarrhea with dehydration Current Visit: Yes Status: Acute Code(s): R19.7 - DIARRHEA, UNSPECIFIED SNOMED Code(s): 56097633 (7) Neutropenia Current Visit: Yes Status: Acute Code(s): D70.9 - NEUTROPENIA, UNSPECIFIED SNOMED Code(s): 466657060 (8) Breast cancer Current Visit: Yes Status: Acute Code(s): C50.919 - MALIGNANT NEOPLASM OF UNSP SITE OF UNSPECIFIED FEMALE BREAST SNOMED Code(s): 014017240 Plan: Assessment and Plan: Dizzyness: - This may have been exaccerbated by dehydration, however the symptoms continue - She has an aggressive form of HER2+ Breast cancer. Therefore risk of metastatic to brain cannot be excluded, MRI is needed - Neurology is following - Status Post Carotid doppler - Echocardiogram Diarrhea: - COntinued since starting treatment despite multiple interventions - CT Abdomen with contrast due to continued tenderness on exam Nausea/Vomiting: - Likley chemo induced, improved [id number] Positive Breast Cancer: - Continue on treatment after discharge Physician attest: I haver completed the full history and physical and agree with above dictation, dictated as a scribe.
[2021-06-27] MEDS: IOPAMIDOL CONTRAST (ORAL USE) VIAL PO PRN ×2 (14:23→15:34)
--- NOTE | 2021-06-27 15:50 | MR ---
MR brain without contrast HISTORY: Acute vertigo Multiplanar multisequence imaging through the brain Correlation CT brain 06/25/2021 There is no restricted diffusion. There is no hemorrhage or hydrocephalus. The corpus callosum, pitui tary, cervical medullary junction, cerebellopontine angles are normal. Brain signal is maintained. Th ere are expected vascular flow voids. The orbits show symmetric appearance. Paranasal sinuses are wel l aerated, mastoid air cells show inflammatory change bilaterally. IMPRESSION: No acute brain abnormality. Some mild inflammatory changes are present within the mastoid air cells. She refused intravenous contrast which may limit evaluation.
--- NOTE | 2021-06-27 17:33 | P.PN ---
Progress Note - Text Progress Note Date: 06/27/21 This is a pleasant 66 years old female with past medical history of breast cancer status post bilateral mastectomy and currently she is undergoing chemotherapy. She presents because of nausea vomiting. However patient states her main complaints she came to the hospital with was dizziness. She describes dizziness as the room is spinning especially when she lies down. She's been getting chemotherapy for the last 10 weeks, however over the last 2 weeks she started to continue chemotherapy, and the second dose was on , on the same day she started having vomiting and dizziness, sometimes waking her up from the middle of the night. Yesterday she vomited 3 times, she has also diarrhea one hour after each time she eats for the last 2 days. Her oncologist is Dr. Ortiz and she has also neurologist She denies smoking, alcohol or illicit drugs 06/27/2021: Sitting upon a bit. Feels better. No diarrhea since yesterday. Has been on liquid diet. Has been up to the bathroom. She says her dizziness rather positional. On moving the head. Lying still she does much better. No other neurological focal symptoms. Computed tomography scan abdomen has been ordered by oncology. Review of systems: Was done for constitutional, cardiovascular, GI, pulmonary. relevant finding as above On examination: VITAL SIGNS: 97.7, 84, 16, 131/84, he did negative for orthostatic, 96% on room air GENERAL APPEARANCE: Sitting up in bed, awake, comfortable HEENT: Normal external appearance of nose and ear. Oral cavity normal EYES: Pupils equal. Conjunctiva normal. NECK: JVD not raised. Mass not palpable. RESPIRATORY: Respiratory effort normal. Lungs clear to auscultation. CARDIOVASCULAR: First and second sounds normal. No edema. ABDOMEN: Soft. Liver and spleen not palpable. No tenderness. No mass palpable. PSYCHIATRY: Alert and oriented x3. Mood and affect normal. INVESTIGATIONS, reviewed in the clinical context: White count 2.1 hemoglobin 10 platelets 291 potassium 3.9 creatinine 0.6 B12 171, folate 14.6, TSH 2.5 Stool for C. diff: Negative. COVID 19 [PCR]: Not detected Brain MRI: No acute. Abnormality. 2-D echocardiogram: EF 60-65% Carotid Doppler: No Significant stenosis. Computed tomography scan of the brain: No acute intracranial process CT abdomen pelvis without contrast: No definite acute intra-abdominal process. Chronic diverticulosis is still. Assessment and plan: -Patient presented with acute dizziness. Predominately position. Possible acute labyrinthitis/BPPV On Antivert. Computed tomography scan of the brain unremarkable. MRI of the brain unremarkable. -. Bicytopenia Due to chemotherapy -Chemotherapy-induced nausea and vomiting Fluid supplement -Acute diarrhea possibly vital Patient's had no further diarrhea since yesterday.. No fever no chills. Tolerating clear liquid. Computed tomography scan of the abdomen without contrast was unremarkable. -Colonic diverticulosis, asymptomatic Follow clinically -Breast cancer with bilateral mastectomy. Chemotherapy. Patient doing much better. Diarrhea much improved. Oncology is ordered a repeat computed tomography scan with contrast. Await results. Diet to be advanced. Patient has been cleared by neurology. Follow
[2021-06-27 17:52] LABS: % Iron Saturation 42.98 (12.00-45.00); Iron 139 ug/dL (50-170); LDH 184 U/L (120-246); Total Iron Binding Capacity 323 ug/dL (228-460)
[2021-06-27 18:25] LABS: Rheumatoid Factor, Qnt <10 IU/mL (0-15)
[2021-06-27] MEDS: MECLIZINE 12.5 MG TAB PO SCH ×2 (19:56→23:34)
[2021-06-27 21:39] LABS: Cancer Antigen 153 41.8 U/mL (0.0-32.3)
--- NOTE | 2021-06-27 22:03 | CT ---
EXAMINATION TYPE: CT abdomen pelvis wo con DATE OF EXAM: 06/27/2021 COMPARISON: 06/25/2021 HISTORY: Nausea and diarrhea CT DLP: mGycm Automated exposure control for dose reduction was used. Images obtained from the diaphragm to the floor the pelvis with no contrast. There is some contrast m aterial in the large bowel. Lung bases are clear of consolidation. There is no pleural effusion. There is minimal subsegmental at electasis at the lung bases. Liver spleen stomach pancreas appear intact. The bile ducts are not dilated. There is no adrenal mass . There are clips from cholecystectomy. Kidneys have normal size and contour. There is no hydronephro sis. There is no retroperitoneal adenopathy. Bladder distends smoothly. There is no inguinal hernia. There is no free fluid in the pelvis. There are some mild hypertrophic changes in the sigmoid colon. There is no free fluid in the pelvis. I see no pelvic mass. Appendix appears normal. There is no mesenteric edema. There is no ascites or free air. There is no bowel obstruction. The lumbar vertebra have fairly normal alignment. There is spondylotic changes from L3 to S1 with vac uum disc. There is a minimal degenerative first-degree L4-5 spondylolisthesis. There is no compressio n fracture. Bony pelvis is intact. The hip joints are intact. IMPRESSION: Normal appendix. No acute abnormality of the abdomen pelvis. No adverse change compared to recent exa m.
[2021-06-28 02:14] VITALS: RESP 16
[2021-06-28 07:20] VITALS: BP 100/67; PULSE 87; TEMP 98.2
[2021-06-28] MEDS: CHOLECALCIFEROL 25 MCG (1000 IU) TABLET PO SCH (08:13)
[2021-06-28] MEDS: FOLIC ACID 1 MG TAB PO SCH (08:13)
[2021-06-28] MEDS: CHOLESTYRAMINE (WITH SUGAR) 4 GM PACKET PO SCH (08:13)
[2021-06-28] MEDS: PANTOPRAZOLE 40 MG TABLET PO SCH (08:13)
[2021-06-28] MEDS: MECLIZINE 12.5 MG TAB PO SCH (08:13)
--- NOTE | 2021-06-28 18:22 | P.DS ---
Providers Date of admission: 06/25/21 20:20 Expected date of discharge: 06/28/21 Attending physician: Santiago Cabello Consults: 06/25/21 20:25 Consult Physician Urgent Consulting Provider: Alin Martines Consult Reason/Comments: chemo induced nausea and vomiting Do you want consulting provider notified?: Yes 06/26/21 13:07 Consult Physician Urgent Consulting Provider: Ashutosh Belcher Consult Reason/Comments: vertigo Do you want consulting provider notified?: Yes Primary care physician: [facility] Course: This is a pleasant 66 years old female with past medical history of breast cancer status post bilateral mastectomy and currently she is undergoing chemotherapy. She presents because of nausea vomiting. However patient states her main complaints she came to the hospital with was dizziness. She describes dizziness as the room is spinning especially when she lies down. She's been getting chemotherapy for the last 10 weeks, however over the last 2 weeks she started to continue chemotherapy, and the second dose was on , on the same day she started having vomiting and dizziness, sometimes waking her up from the middle of the night. Yesterday she vomited 3 times, she has also diarrhea one hour after each time she eats for the last 2 days. Her oncologist is Dr. Ortiz and she has also neurologist She denies smoking, alcohol or illicit drugs 06/27/2021: Sitting upon a bit. Feels better. No diarrhea since yesterday. Has been on liquid diet. Has been up to the bathroom. She says her dizziness rather positional. On moving the head. Lying still she does much better. No other neurological focal symptoms. Computed tomography scan abdomen has been ordered by oncology. 06/28/2021: Patient doing well. Tolerating a diet. No abdominal pain. Repeat computed tomography scan with contrast unremarkable. Patient dizziness is still's positional. Discussed about using Cody maneuver. Patient in good yesterday. Follow-up with Dr. Martines. Violet when necessary. Discussion and discharge planning more than 35 minutes Crap Game Box Person: Neurology Dr. Martines from oncology On examination: VITAL SIGNS: 98.2, 87, 16, 1:30/86, 96% room air GENERAL APPEARANCE: Sitting up in bed, awake, comfortable HEENT: Normal external appearance of nose and ear. Oral cavity normal EYES: Pupils equal. Conjunctiva normal. NECK: JVD not raised. Mass not palpable. RESPIRATORY: Respiratory effort normal. Lungs clear to auscultation. CARDIOVASCULAR: First and second sounds normal. No edema. ABDOMEN: Soft. Liver and spleen not palpable. No tenderness. No mass palpable. PSYCHIATRY: Alert and oriented x3. Mood and affect normal. INVESTIGATIONS, reviewed in the clinical context: Computed tomography scan of the abdomen pelvis on June 27]: Unremarkable White count 2.1 hemoglobin 10 platelets 291 potassium 3.9 creatinine 0.6 B12 171, folate 14.6, TSH 2.5 Stool for C. diff: Negative. COVID 19 [PCR]: Not detected Brain MRI: No acute. Abnormality. 2-D echocardiogram: EF 60-65% Carotid Doppler: No Significant stenosis. Computed tomography scan of the brain: No acute intracranial process CT abdomen pelvis without contrast: No definite acute intra-abdominal process. Chronic diverticulosis is still. Assessment and plan: -Patient presented with acute dizziness. Predominately position. Possible acute labyrinthitis/BPPV On Antivert. Computed tomography scan of the brain unremarkable. MRI of the brain unremarkable. Antivert when necessary. Cody maneuver. 3 times a day -. Bicytopenia Due to chemotherapy -Chemotherapy-induced nausea and vomiting Fluid supplement -Acute diarrhea possibly vital: Resolved No fever no chills. Tolerating a light diet Computed tomography scan of the abdomen without contrast was unremarkable. -Colonic diverticulosis, asymptomatic Follow clinically -Breast cancer with bilateral mastectomy. Chemotherapy. Disposition: Home Patient Condition at Discharge: Stable Plan - Discharge Summary New Discharge Prescriptions: New Meclizine [Antivert] 12.5 mg PO QID PRN #20 tab PRN Reason: Vertigo Continue Loratadine [Claritin] 10 mg PO DAILY PRN PRN Reason: CHEMO Cholecalciferol [Vitamin D3 (25 Mcg = 1000 Iu)] 25 mcg PO DAILY Lidocaine-Prilocaine Cream [Emla Cream 2.5%/2.5%] 1 applic TOPICAL DIRECTED PRN PRN Reason: PORT ACCESS ondansetron HCL [Zofran] 8 mg PO QID PRN PRN Reason: Nausea Omeprazole 40 mg PO DAILY OLANZapine [ZyPREXA] 5 mg PO DAILY PRN PRN Reason: CHEMO Folic Acid 1 mg PO DAILY Dicyclomine [Bentyl] 10 mg PO TID PRN PRN Reason: CHEMO Dexamethasone [Decadron] See Taper PO DIRECTED PRN PRN Reason: CHEMO Cholestyramine (with Sugar) [Cholestyramine Packet] 4 gm PO DAILY PRN PRN Reason: Loose Stool Discharge Medication List Cholecalciferol [Vitamin D3 (25 Mcg = 1000 Iu)] 25 mcg PO DAILY 06/25/21 [History] Cholestyramine (with Sugar) [Cholestyramine Packet] 4 gm PO DAILY PRN 06/25/21 [History] Dexamethasone [Decadron] See Taper PO DIRECTED PRN 06/25/21 [History] Dicyclomine [Bentyl] 10 mg PO TID PRN 06/25/21 [History] Folic Acid 1 mg PO DAILY 06/25/21 [History] Lidocaine-Prilocaine Cream [Emla Cream 2.5%/2.5%] 1 applic TOPICAL DIRECTED PRN 06/25/21 [History] Loratadine [Claritin] 10 mg PO DAILY PRN 06/25/21 [History] OLANZapine [ZyPREXA] 5 mg PO DAILY PRN 06/25/21 [History] Omeprazole 40 mg PO DAILY 06/25/21 [History] ondansetron HCL [Zofran] 8 mg PO QID PRN 06/25/21 [History] Meclizine [Antivert] 12.5 mg PO QID PRN #20 tab 06/28/21 [Rx] Follow up Appointment(s)/Referral(s): Geraldine Sanabria MD [REFERRING] - 1 Week James Benitez MD [Primary Care Provider] - 1-2 days Patient Instructions/Handouts: Vertigo (DC) Activity/Diet/Wound Care/Special Instructions: cody maneuver activity as tolerated regular diet as tolerated
== END 2021-06-28 11:30 ==
LOC: EC 15:29 → 6NMEDSUR 20:20
PROVIDERS: ADMIT Hospitalist; ATTEND Hospitalist
DX: T45.1X5A Adverse effect of antineoplastic and immunosuppressive drugs, initial encounter (principal); R11.2 Nausea with vomiting, unspecified; E86.0 Dehydration; K57.30 Diverticulosis of large intestine without perforation or abscess without bleeding; H53.9 Unspecified visual disturbance; R74.01 Elevation of levels of liver transaminase levels; D70.9 Neutropenia, unspecified; L65.9 Nonscarring hair loss, unspecified; I10 Essential (primary) hypertension; K52.9 Noninfective gastroenteritis and colitis, unspecified; R74.8 Abnormal levels of other serum enzymes; E66.9 Obesity, unspecified; Z68.30 Body mass index [BMI] 30.0-30.9, adult; Z20.822 Contact with and (suspected) exposure to COVID-19; Z85.3 Personal history of malignant neoplasm of breast; Z92.21 Personal history of antineoplastic chemotherapy; Z96.653 Presence of artificial knee joint, bilateral; Z96.612 Presence of left artificial shoulder joint; Z88.6 Allergy status to analgesic agent; Z79.899 Other long term (current) drug therapy; Z90.13 Acquired absence of bilateral breasts and nipples; Z90.49 Acquired absence of other specified parts of digestive tract
CPT/HCPCS: 96376 ×2; 96361 ×4; 96375 ×2; 96365; 99285; 36415; 93005; 93306; 83921; 80053 ×2; 80048; 86300; 84443; 82607 ×2; 82728; 82746 ×2; 83540; 83550; 83615; 83690; 83735 ×2; 85025 ×3; 86431; 81003; 87324; 86038; 87045; 83630; 87046; 87635; 71046; 93880; 70450; 74176 ×2; 70551; G0378 ×4; J1200; J2765; J3360; J2405 ×3; J3475